=== PATIENT | male | born 1980 | race Caucasian/White ===

== ENCOUNTER 2017-06-24 19:31 | Emergency (ER) | payer OTHER, BC ==
[2017-06-24] MEDS ORDERED: LIDOCAINE 5% (700 MG) TRANSDERMAL ADH..PATCH TP ONE (21:39)
[2017-06-24] MEDS ORDERED: ACETAMINOPHEN 325 MG TABLET PO ONE (21:39)
[2017-06-24] MEDS ORDERED: IBUPROFEN 600 MG TABLET PO ONE (21:39)
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
[2017-06-24 21:46] VITALS: BP 137/96
== END 2017-06-24 22:11 | disposition home or self-care (01) ==
LOC: ER 19:31
DX: S46.811A Strain of other muscles, fascia and tendons at shoulder and upper arm level, right arm, initial encounter (principal); S00.83XA Contusion of other part of head, initial encounter; V43.52XA Car driver injured in collision with other type car in traffic accident, initial encounter
CPT/HCPCS: 99283

== ENCOUNTER 2017-06-28 21:09 | Emergency (ER) | payer BC, OTHER ==
[2017-06-28 21:27] VITALS: BP 138/95
[2017-06-28] MEDS ORDERED: MECLIZINE HCL 25 MG TABLET PO ONE (22:18)
[2017-06-28] MEDS ORDERED: ONDANSETRON 4 MG TAB.RAPDIS PO ONE (22:18)
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
== END 2017-06-28 23:45 | disposition home or self-care (01) ==
LOC: ER 21:09
DX: S00.12XA Contusion of left eyelid and periocular area, initial encounter (principal); V49.60XA Unspecified car occupant injured in collision with unspecified motor vehicles in traffic accident, initial encounter; R51 Headache; R11.2 Nausea with vomiting, unspecified; R42 Dizziness and giddiness
CPT/HCPCS: 99284; S0119

== ENCOUNTER → 2017-07-02 | Outpatient (CLI) | payer BC, OTHER ==
--- NOTE | 2017-07-02 07:23 | RADIOLOGY REPORT (SQ) ---
EXAM DESCRIPTION: CT HEAD WITHOUT COMPLETED DATE/TIME: 07/02/2017 7:07 am REASON FOR STUDY: CONCUSSION WITH LOSS OF CONSCIOUSNESS S06.0X9A CONCUSSION W LOSS OF CONSCIOUSNESS OF UNSP DURATION COMPARISON: None. TECHNIQUE: Axial images acquired through the brain without intravenous contrast. Images reviewed wi th bone, brain and subdural windows. Images stored on PACS. All CT scanners at this facility use dose modulation, iterative reconstruction, and/or weight based d osing when appropriate to reduce radiation dose to as low as reasonably achievable (ALARA). [facility]: Dose Right [facility]: CareDose [facility]: Dose Right [facility]: Teradose 4D [facility]: [employer] RADIATION DOSE: Up-to-date CT equipment and radiation dose reduction techniques were employed. CTDIv ol: 64.6 mGy. DLP: 1163 mGy-cm. mGy. LIMITATIONS: None. FINDINGS: VENTRICLES: Normal size and contour. CEREBRUM: No mass effect. No hemorrhage. No midline shift. Normal ulloa/white matter differentiatio n. No evidence for acute territorial infarction. CEREBELLUM: No mass effect. No hemorrhage. No alteration of density. No evidence for acute infarct ion. EXTRAAXIAL SPACES: No fluid collections. ORBITS AND GLOBE: Symmetrical contour of the globes. CALVARIUM: No depressed skull fracture. PARANASAL SINUSES: No air-fluid level. SOFT TISSUES: No hematoma. IMPRESSION: No acute intracranial hemorrhage or depressed calvarial fracture. COMMENT: Quality ID # [id number]: Final reports with documentation of one or more dose reduction techniques (e.g., Automated exposure control, adjustment of the mA and/or kV according to patient size, use of iterative reconstruction technique) TECHNICAL DOCUMENTATION: JOB ID: [id number] MS-64 [facility]- All Rights Reserved
== END ==
LOC: RAD 06:36
PROVIDERS: ATTEND Nurse Practitioner Family
DX: S06.0X9A Concussion with loss of consciousness of unspecified duration, initial encounter (principal); X58.XXXA Exposure to other specified factors, initial encounter
CPT/HCPCS: 70450

== ENCOUNTER → 2017-07-09 | Outpatient (CLI) | payer BC, OTHER ==
--- NOTE | 2017-07-09 17:16 | RADIOLOGY REPORT (SQ) ---
EXAM DESCRIPTION: C SP 4 OR 5 VIEWS COMPLETED DATE/TIME: 07/09/2017 2:59 pm REASON FOR STUDY: NECK PAIN ON RT SIDE M54.2 CERVICALGIA R20.2 PARESTHESIA OF SKIN COMPARISON: None. NUMBER OF VIEWS: Five views. TECHNIQUE: AP, lateral, obliques and odontoid radiographic images acquired of the cervical spine. LIMITATIONS: None. FINDINGS: MINERALIZATION: Normal. ALIGNMENT: Straightening of cervical curvature possibly due to muscle spasm VERTEBRAE: Vertebral bodies of normal height. DISCS: No significant osteophytes or sclerosis. Disc height maintained. FORAMINA: No osteophytes or foraminal narrowing. LATERAL AND POSTERIOR ELEMENTS: Facets, lateral masses and spinous processes without significant find ings. HARDWARE: None in the spine. SOFT TISSUES: No masses or calcifications. Lung apices clear. OTHER: No other significant finding. IMPRESSION: Straightening of cervical curvature probably related to muscle spasm. No fracture or ma lalignment. No significant bony central or foraminal stenosis TECHNICAL DOCUMENTATION: JOB ID: [id number] [employer]- All Rights Reserved
--- NOTE | 2017-07-09 17:17 | RADIOLOGY REPORT (SQ) ---
EXAM DESCRIPTION: LUMBAR SPINE COMPLETE COMPLETED DATE/TIME: 07/09/2017 2:59 pm REASON FOR STUDY: LEG PARESTHESIA; NECK PAIN ON RIGHT SIDE M54.2 CERVICALGIA R20.2 PARESTHESIA OF SKIN COMPARISON: None. NUMBER OF VIEWS: Five views including obliques. TECHNIQUE: AP, lateral, oblique, and sacral radiographic images acquired of the lumbar spine. LIMITATIONS: None. FINDINGS: MINERALIZATION: Normal. SEGMENTATION: Normal. No transitional anatomy. ALIGNMENT: Normal. VERTEBRAE: Maintained height. No fracture or worrisome bone lesion. DISCS: Preserved height. No significant osteophytes or end plate irregularity. POSTERIOR ELEMENTS: Pedicles and facets are intact. No pars defect or posterior arch defects. HARDWARE: None in the spine. Surgical clips right lower quadrant. PARASPINAL SOFT TISSUES: Normal. PELVIS: Intact as visualized. No fractures or worrisome bone lesions. SI joints intact. OTHER: No other significant finding. IMPRESSION: NORMAL 5 VIEW LUMBAR SPINE. TECHNICAL DOCUMENTATION: JOB ID: [id number] [employer]- All Rights Reserved
== END ==
LOC: OD 13:52
PROVIDERS: ATTEND Nurse Practitioner Family
DX: M54.2 Cervicalgia (principal); R20.2 Paresthesia of skin
CPT/HCPCS: 72050; 72110